=== PATIENT | female | born 1980 | race Two or more races ===

== ENCOUNTER 2020-08-01 20:17 | Emergency (ER) | payer MEDICAID, OTHER ==
[~2020-08-01] VITALS: Ht 157.5 cm; Wt 92.5 kg
[2020-08-01 21:10] VITALS: BP 107/79
[2020-08-01] MEDS ORDERED: KETOROLAC TROMETH 60MG/2ML VIAL IM ONE (23:00)
[2020-08-01] MEDS ORDERED: BACLOFEN 10 MG TAB PO ONE (23:00)
== END 2020-08-01 23:46 | disposition home or self-care (01) ==
LOC: ER 20:18
DX: S16.1XXA Strain of muscle, fascia and tendon at neck level, initial encounter (principal); S00.11XA Contusion of right eyelid and periocular area, initial encounter; M25.511 Pain in right shoulder; M62.838 Other muscle spasm; X58.XXXA Exposure to other specified factors, initial encounter; Y93.89 Activity, other specified; Y92.89 Other specified places as the place of occurrence of the external cause; Y99.8 Other external cause status
CPT/HCPCS: 70450; 70486; 72125; 96372; 99285; J1885

== ENCOUNTER 2021-07-17 20:30 | Emergency (ER) | payer MEDICAID ==
[~2021-07-17] VITALS: Ht 157.5 cm; Wt 93.9 kg
[2021-07-17 23:42] VITALS: BP 111/79
== END 2021-07-18 00:20 | disposition left against medical advice (07) ==
LOC: ER 20:30
DX: M79.671 Pain in right foot (principal); Z53.21 Procedure and treatment not carried out due to patient leaving prior to being seen by health care provider